=== PATIENT | male | born 1950 | race Caucasian/White ===

== ENCOUNTER → 2017-04-28 | Outpatient (CLI) | payer OTHER | LOC: NUC 11:02 | DX: I25.119 Atherosclerotic heart disease of native coronary artery with unspecified angina pectoris (principal); I10 Essential (primary) hypertension; E78.5 Hyperlipidemia, unspecified ==

== ENCOUNTER → 2017-10-20 | Outpatient (CLI) | payer OTHER ==
--- NOTE | ~2017-10-20 | 2DMMODE ---
[facility] [address] [place] [address] 2 D/M-MODE ECHOCARDIOGRAM Name: BROOKE MCCAIN Room #: REG [facility]#: [id number] Admission: 10/20/17 Attend Phys: Estevan Garrett MD Discharge: Date of : 46 Date of Service: 10/20/17 1345 Report #: [id number] THIS REPORT FOR: //name// APPROVED REPORT Study performed: 10/20/2017 13:09:26 EXAM: Comprehensive 2D, Doppler, and color-flow Echocardiogram Patient Location: Out-Patient Status: routine BSA: 2.12 HR: 73 bpm BP: 135/81 mmHg Rhythm: NSR Other Information Study Quality: Adequate Indications CAD, history of PCI 2D Dimensions RVDd: 31.29 mm LVEF(%): 66.23 (>50%) IVSd: 10.74 (7-11mm) LVOT Diam: 22.78 (18-24mm) LVDd: 50.99 mm PWd: 11.10 (7-11mm) Ascending Ao: 40.71 (22-36mm) LVDs: 32.27 (25-40mm) Aortic Root: 41.64 mm Amaral's LVEF: 66.23 % Volumes Left Atrial Volume (Systole) Single Plane 4CH: 37.06 mL Single Plane 2CH: 50.00 mL LA ESV Index: 21.00 mL/m2 Aortic Valve AoV Peak Vick.: 1.23 m/s AO Peak Gr.: 6.04 mmHg LVOT Max P.68 mmHg LVOT Max V: 0.96 m/s DANITA Vmax: 3.18 cm2 Mitral Valve E/A Ratio: 0.7 MV Decel. Time: 273.96 ms [facility] [address] [place] [address] 2 D/M-MODE ECHOCARDIOGRAM Name: BROOKE MCCAIN Room #: REG [facility]#: [id number] Admission: 10/20/17 Attend Phys: Estevan Garrett MD Discharge: Date of : 46 Date of Service: 10/20/17 1345 Report #: [id number] MV E Max Vick.: 0.48 m/s MV A Vick.: 0.73 m/s MV PHT: 79.45 ms IVRT: 101.50 ms Pulmonary Valve PV Peak Vick.: 0.81 m/s PV Peak Gr.: 2.63 mmHg Tricuspid Valve RAP Estimate: 5.00 mmHg Left Ventricle The left ventricle is normal size. There is normal LV segmental wall motion. There is normal left ventricular wall thickness. Left ventricular systolic function is normal. LVEF is 60-65%. Mild diastolic dysfunction is present (impaired relaxation pattern). Right Ventricle The right ventricle is normal size. The right ventricular systolic function is normal. Atria The left atrium size is normal. The right atrium size is normal. Aortic Valve Aortic valve is trileaflet. No aortic regurgitation is present. There is no aortic valvular stenosis. Mitral Valve The mitral valve is normal in structure. Mild mitral annular calcification. Trace mitral regurgitation. Tricuspid Valve The tricuspid valve is normal in structure. There is no tricuspid valve regurgitation noted. Unable to assess PA pressure. Pulmonic Valve Pulmonic valve is not well visualized. Trace pulmonic regurgitation. Great Vessels Aortic root is dilated at 4.2cm. Ascending aorta is dilated at 4.1cm. IVC is normal in size and collapses >50% with inspiration. [facility] [address] [place] [address] 2 D/M-MODE ECHOCARDIOGRAM Name: BROOKE MCCAIN Room #: REG CL [facility]#: [id number] Admission: 10/20/17 Attend Phys: Estevan Garrett MD Discharge: Date of : 46 Date of Service: 10/20/17 1345 Report #: [id number] Pericardium There is no pericardial effusion. <Conclusion> The left ventricle is normal size. There is normal left ventricular wall thickness. Left ventricular systolic function is normal. Mild diastolic dysfunction is present (impaired relaxation pattern). The right ventricle is normal size. The left atrium size is normal. Aortic valve is trileaflet. Mild mitral annular calcification. Trace mitral regurgitation. <ELECTRONICALLY SIGNED> By: Estevan Garrett MD 10/20/17 1345 1345 1345 Estevan Garrett MD /INF
== END ==
LOC: CV 10:55
DX: I25.10 Atherosclerotic heart disease of native coronary artery without angina pectoris (principal); I70.8 Atherosclerosis of other arteries

== ENCOUNTER → 2019-11-23 | Outpatient (CLI) | payer OTHER | LOC: SJCVCIMAG 10:19 | DX: I25.10 Atherosclerotic heart disease of native coronary artery without angina pectoris (principal); I10 Essential (primary) hypertension; E78.00 Pure hypercholesterolemia, unspecified ==

== ENCOUNTER → 2020-04-26 | Outpatient (CLI) | payer OTHER | LOC: SJCVCIMAG 07:33 | PROVIDERS: ATTEND Internal Medicine Cardiovascular Disease | DX: R00.0 Tachycardia, unspecified (principal); I25.10 Atherosclerotic heart disease of native coronary artery without angina pectoris; R60.9 Edema, unspecified; E78.00 Pure hypercholesterolemia, unspecified; I10 Essential (primary) hypertension; I25.2 Old myocardial infarction; J44.9 Chronic obstructive pulmonary disease, unspecified; F17.200 Nicotine dependence, unspecified, uncomplicated; Z79.82 Long term (current) use of aspirin; Z79.899 Other long term (current) drug therapy; Z82.49 Family history of ischemic heart disease and other diseases of the circulatory system ==

== ENCOUNTER → 2020-10-25 | Outpatient (CLI) | payer OTHER | LOC: SJCVC 13:23 | PROVIDERS: ATTEND Internal Medicine Cardiovascular Disease | DX: I25.10 Atherosclerotic heart disease of native coronary artery without angina pectoris (principal); E78.00 Pure hypercholesterolemia, unspecified; I10 Essential (primary) hypertension; I25.2 Old myocardial infarction; F17.200 Nicotine dependence, unspecified, uncomplicated; Z98.890 Other specified postprocedural states; Z98.61 Coronary angioplasty status; Z79.82 Long term (current) use of aspirin; Z79.899 Other long term (current) drug therapy; Z82.49 Family history of ischemic heart disease and other diseases of the circulatory system ==

== ENCOUNTER → 2021-04-26 | Outpatient (CLI) | payer OTHER | LOC: SJCVC 13:28 | PROVIDERS: ATTEND Internal Medicine Cardiovascular Disease | DX: I25.10 Atherosclerotic heart disease of native coronary artery without angina pectoris (principal); I10 Essential (primary) hypertension; E78.00 Pure hypercholesterolemia, unspecified; Z72.0 Tobacco use; Z79.82 Long term (current) use of aspirin; Z79.899 Other long term (current) drug therapy; F17.200 Nicotine dependence, unspecified, uncomplicated; J44.9 Chronic obstructive pulmonary disease, unspecified ==